=== PATIENT | male | born 1960 | race Two or more races ===

== ENCOUNTER 2024-12-15 11:05 | Emergency (ER) | payer OTHER ==
[~2024-12-15] VITALS: Ht 160 cm; Wt 88.6 kg
[2024-12-15] MEDS ORDERED: AMOX1TAB15 PO (11:10)
[2024-12-15] MEDS: CEPHALEXIN MONOHYDRATE 500 MG CAPSULE PO ONE (14:52)
[2024-12-15 14:53] VITALS: BP 124/79; PULSE 68; RESP 16; TEMP 97.6; O2SAT 97
[2024-12-15] MEDS: IBUPROFEN 600 MG TABLET PO ONE (14:53)
[2024-12-15] MEDS: SULFAMETHOX/TRIMETH DS 800-160 MG/TABLET PO ONE (14:53)
[2024-12-15] MEDS ORDERED: SULF-261 PO (14:54)
[2024-12-15] MEDS ORDERED: CEPH-558 PO (14:54)
[2024-12-15] MEDS ORDERED: IBUP-1492 PO (14:54)
== END 2024-12-15 15:00 | disposition home or self-care (01) ==
LOC: EMS 11:05
DX: S71.132A Puncture wound without foreign body, left thigh, initial encounter (principal); W22.8XXA Striking against or struck by other objects, initial encounter; Y93.89 Activity, other specified; Y92.89 Other specified places as the place of occurrence of the external cause; Y99.8 Other external cause status
CPT/HCPCS: 99284; 73552-LT; 73562-TC; Z7502; Z7610